=== PATIENT | female | born 2005 | race African-American/Black ===

== ENCOUNTER 2025-05-10 08:15 | Day surgery (SDC) | payer OTHER, SELFPAY ==
[2025-05-10] VITALS (16 sets, daily range): BP systolic 108–139; BP diastolic 52–86; PULSE 53–98; RESP 16; TEMP 36.3–36.9; O2SAT 96–100; BMI 47.1
[2025-05-10] MEDS: SODIUM CHLORIDE 0.9 % (FLUSH) 10 ML SYRINGE IVF (08:43)
[2025-05-10] MEDS: LACTATED RINGERS 1000 ML 1,000 ML 100 ML IV (08:43)
[2025-05-10] MEDS: ACETAMINOPHEN 500 MG TABLET 1000 MG PO (09:20)
--- NOTE | 2025-05-10 09:30 | CRLHL7_ITS ---
For Patients: As a result of the Cures Act, medical imaging exams and procedure reports are released immediately into your electronic medical record. You may view this report before your referring provider. If you have questions, please contact your health care provider. Indication: RIGHT ANKLE ORIF Technique: Three fluoroscopic images of the right ankle. Fluoroscopic time 5.3 seconds. IMPRESSION: Fluoroscopic guidance for open reduction internal fixation of distal fibular diaphyseal fracture. Dictated by Napoleon Reid MD @ 05/10/2025 11:06:49 AM (Electronically Signed)
[2025-05-10] MEDS: MIDAZOLAM HCL 1 MG/ML inj IVP (09:44)
--- NOTE | 2025-05-10 10:02 | SUR.PREOP ---
TIME?OUT:?0944 PT/RN/MDA?VERIFICATION?OF?SURGICAL?SITE,?PROCEDURE,?AND?CONSENT OBTAINED?PRIOR?TO?INVASIVE?PROCEDURE.
--- NOTE | 2025-05-10 10:54 | W.PM.NB ---
Nerve Block Nerve Block Time Seen by Provider: 09:45 Date Seen: 05/10/25 Type of block requested by surgeon for post-operative analgesia: popliteal Side: right Time out performed: Yes Verification of patient name: Yes Verification of date of : Yes Site marking: site marked Name of person performing procedure: Demetrio Continuous monitoring Was continuous monitoring of O2 sat, B/P, threat monitoring analyst, recorded every 15 minutes?: Yes Procedure Checklist: sterile prep, needles and gloves Ultrasound guided. Images saved: Yes Medications given in 5ml increments after negative aspiration: Marcaine %: 0.25 mL: 10 Needle gauge: 20 and Exparel mL: 10 Patient tolerated procedure well: Yes Additional comments: Needle noted adjacent to nerve Block Charges Block Charge (with Pro Fee): Sciatic Nerve Use of Ultrasound Machine for Block: Yes- US Guidance/pain block
--- NOTE | 2025-05-10 10:58 | W.PM.H&PU ---
History & Physical Update History & Physical Update H&P Reviewed and patient assessed: No changes noted
--- NOTE | 2025-05-10 10:58 | PM.ORPRC ---
Procedure Note Date of procedure: 05/10/25 Procedure: PREOPERATIVE DIAGNOSES: 1. Right ankle bimalleolar fracture (lateral and posterior malleolus with bimalleolar equivalent) - unstable on stress imaging, closed, acute POSTOPERATIVE DIAGNOSES: 1. Right ankle bimalleolar fracture (lateral and posterior malleolus with bimalleolar equivalent) - unstable on stress imaging, closed, acute NAME OF OPERATION: 1. Right ankle lateral malleolus open reduction with internal fixation. 2. Right ankle closed treatment of a posterior malleolus fracture 3. Intraoperative fluoroscopy and interpreted by Bharat Mendosa M.D. for intraoperative evaluation of fracture reduction and implant positioning. Fluoroscopy time was 5.3 seconds. SURGEON: Bharat Mendosa MD BUSINESS MANAGEMENT INTERN: Camilo VALENZUELA; Of note, an printing assistant was critical for this case to aide in patient positioning, leg manipulation, tissue retraction, closure, patient safety, & splinting. ANESTHESIA: Spinal +/- popliteal block. EBL: 5 ml IMPLANTS: Arthrex titanium distal fibular interfragmentary 3.0mm screws (x3). TOURNIQUET: 30 minutes at 300 torr. INDICATIONS: The patient is a pleasant, 20-year-old female who sustained a right ankle injury in the recent past. They had difficulty bearing weight. Workup included xrays which revealed an unstable ankle fracture. Given these findings, surgery was recommended to stablize the ankle. FINDINGS: Closed, long oblique distal fibular fracture. After fixing the fibula, the syndesmosis was stressed found to be stable. Indeed, the posterior malleolus fragment also remains stable. PROCEDURE: Following a thorough discussion of risks, benefits, and alternatives, consent was obtained and the right ankle was marked. The patient was brought to the operating room and placed supine on the operating table. Induction of anesthesia was undertaken. Appropriate time out was performed identifying proper patient, site and procedure. 3 g IV Ancef was administered within 1 hour of incision preoperatively. The right lower extremity was prepped and draped in the appropriate sterile fashion using ChloraPrep prep. The limb was exsanguinated and the tourniquet inflated. A longitudinal incision was made overlying the distal fibula. Sharp incision through skin and subcutaneous tissue, while protecting any crossing neurologic structures, was performed allowing subperiosteal elevation. The fracture was encountered, and cleared of interposed periosteum and fracture hematoma. The joint was entered, and thoroughly irrigated with normal saline performed. The fracture was reduced and temporarily held with reduction clamps. Interfragmentary screws were placed with a lag technique (x3) with excellent security to the fracture. It was not felt that a neutralization plate would add value given the 3 screws. After confirming appropriate reduction/positioning on C-arm fluoroscopic imaging, the fracture was stabilized with the hardware noted. Fluoroscopy was utilized for confirmation of screw length / positioning. Additionally, the syndesmosis was stressed and found to be stable. Closed treatment of the posterior malleolus fracture was prudent given the minimally displaced nature of the fracture. At this stage, the wound was thoroughly irrigated with normal saline. Closure was performed with #0 Vicryl for the deep periosteum, tourniquet deflated and hemostasis achieved. 3-0 Vicryl for the subcutaneous, and 4-0 statafix for subcuticular layers completed the closure. Dermabond was applied, dressings were applied, and a sugar-tong splint was applied. The patient was awoken from anesthesia and transferred to the PACU in stable condition. PLAN: 1. Elevate operative extremity. 2. Encouraged ice PRN. 3. Tylenol, ibuprofen, and/or Oxycodone for pain as needed. 4. Follow up with PA visit in 10-14 days with removal splint, transition to Cam boot, and initiate weightbear as tolerated with crutch or knee scooter assistance PRN. Then follow-up with me at the 6 week mari. Repeat x-rays right ankle-three views. 5. Toe touch weightbearing operative extremity at this time until 1st postop visit.
--- NOTE | 2025-05-10 11:16 | P.ANES_ITS ---
Anesthesia Charges Start Date/Time Anesthesia Start Date: 05/10/25 Anesthesia Start Time: 09:53 Stop Date/Time Anesthesia Stop Date: 05/10/25 Anesthesia Stop Time: 11:13 Coding CPT Codes CPT Codes: ANESTH LOWER LEG BONE SURG - 42125 ([id number]) P3 - PATIENT W/SEVERE SYS DISEASE, QZ - FIELD ARTILLERY BASIC SVC W/O SHAFT HEADMAN BY
--- NOTE | 2025-05-10 11:16 | W.ANESCHARGE ---
Anesthesia Charges Start Date/Time Anesthesia Start Date: 05/10/25 Anesthesia Start Time: 09:53 Stop Date/Time Anesthesia Stop Date: 05/10/25 Anesthesia Stop Time: 11:13 Coding CPT Codes CPT Codes: ANESTH LOWER LEG BONE SURG - 13670 ([id number]) P3 - PATIENT W/SEVERE SYS DISEASE, QZ - ESCROW ASSISTANT SVC W/O FRAMING AND HANGING BY
[2025-05-10] MEDS: IBUPROFEN 200 MG TABLET 600 MG PO (13:07)
== END 2025-05-10 13:34 | disposition home or self-care (01) ==
LOC: OR 08:20
PROVIDERS: PCP Family Medicine; Visit Provider Orthopaedic Surgery Sports Medicine
PROC: (CPT 27814; principal; 2025-05-10 09:30)
DX: S82.841A Displaced bimalleolar fracture of right lower leg, initial encounter for closed fracture (principal); G89.18 Other acute postprocedural pain
CPT/HCPCS: 27814; 01480; 64445; 73610; 76000; 76942; A9270; C1713; J0690; J1885; J2250; J2704; J3010; J3475; J3490; J7120